=== PATIENT | male | born 1975 | race Caucasian/White ===

== ENCOUNTER 2017-02-12 17:23 | Emergency (ER) | payer OTHER ==
[2017-02-12 17:29] VITALS: BP 113/75; PULSE 72; RESP 16; TEMP 98.1; O2SAT 95
--- NOTE | 2017-02-12 18:37 | ED PDOC ---
Arrival/HPI - General Chief Complaint: Headache Time Seen by Provider: 02/12/17 17:33 Historian: Patient - History of Present Illness Narrative History of Present Illness (Text): 02/12/17 18:25 41yr old male presents today with a 1 week history of right sided jaw pain, right ear pain, and right sided headache. no medications have been taken for pain at home. pt states pain is worse when he opens his mouth wide. pt denies blurred vision. denies fever/chills. denies dental pain. pt denies decreased sensation in the face. denies decreased hearing. no other complaints. Time/Duration: 1 week Symptom Onset: Gradual Symptom Course: Worsening Quality: Aching Severity Level: 6 Past Medical History - Provider Review Nursing Documentation Reviewed: Yes - Travel History Have you recently traveled outside [place] w/in the past 3 mons?: No - Tetanus Immunization Tetanus Immunization: Unknown - Psychiatric Hx Psychophysiologic Disorder: No Hx Substance Use: No - Surgical History Hx Abdominal Aortic Aneurysm Repair: No Other/Comment: CYST REMOVED FROM R GROIN AT AGE 9 Family/Social History - Physician Review Nursing Documentation Reviewed: Yes Family/Social History: Unknown Family HX Smoking Status: Never Smoked Hx Alcohol Use: No Hx Substance Use: No Allergies/Home Meds Allergies/Adverse Reactions: Allergies No Known Allergies Allergy (Verified 02/12/17 17:29) Review of Systems - Review of Systems Constitutional: absent: Fatigue, Fevers Eyes: absent: Vision Changes, Photophobia, Eye Pain ENT: TMJ Pain, Sinus Congestion. absent: Hearing Changes, Sore Throat, Epistaxis Respiratory: absent: SOB, Cough Cardiovascular: absent: Chest Pain, Palpitations Gastrointestinal: absent: Abdominal Pain, Nausea, Vomiting Genitourinary Male: absent: Dysuria, Frequency Musculoskeletal: Arthralgias (right jaw pain). absent: Back Pain, Neck Pain Skin: absent: Rash, Pruritis Neurological: Headache. absent: Dizziness Psychiatric: absent: Anxiety, Depression Physical Exam Vital Signs Reviewed: Yes Vital Signs Temp Pulse Resp BP Pulse Ox 02/12/17 17:26 98.1 F 72 16 113/75 95 Temperature: Afebrile Blood Pressure: Normal Pulse: Regular Respiratory Rate: Normal Appearance: Positive for: Well-Appearing, Non-Toxic, Comfortable Pain Distress: None Mental Status: Positive for: Alert and Oriented X 3 - Systems Exam Head: Present: Atraumatic, Tenderness (+ right sided TMJ tenderness), Other (no facial asymmetry) Pupils: Present: PERRL Extroacular Muscles: Present: EOMI Conjunctiva: Present: Normal Ears: Present: Normal, NORMAL TM. No: Erythema Mouth: Present: Moist Mucous Membranes, Normal Lips, Normal Tounge, Normal Teeth (no dental tenderness. + ttp over right TJM; no edema, no erythema; no ecchymosis; ). No: Drooling, Trismus Pharnyx: Present: Normal. No: ERYTHEMA, EXUDATE, TONSILS ENLARGED, Peritonsilar Swelling, Uvular Deviation, Muffled/Hoarse Voice, Strider, Soft Palate/Uvular Edema Nose (External): Present: Atraumatic Nose (Internal): Present: Normal Inspection Neck: Present: Normal Range of Motion, Trachea Midline. No: MIDLINE TENDERNESS , Paraspinal Tenderness, Lymphadenopathy Respiratory/Chest: Present: Clear to Auscultation, Good Air Exchange. No: Respiratory Distress, Accessory Muscle Use Cardiovascular: Present: Regular Rate and Rhythm, Normal S1, S2. No: Murmurs Neurological: Present: GCS=15, Speech Normal, Motor Func Grossly Intact, Normal Sensory Function, Gait Normal Skin: Present: Warm, Dry Psychiatric: Present: Alert, Oriented x 3 Medical Decision Making ED Course and Treatment: 02/12/17 18:55 41yr old male with right sided jaw pain x 1 week. pt non toxic well appearing; no distress. pt with right sided TMJ tenderness. pt without trismus or drooling. no facial asymmetry, no facial droop. Speaking in full sentences in no distress. sensation intact bilaterally on the face. toradol and flexeril given Po pt reassessment; pt feeling better after medications. vitals stable. advised f/u with dentist and pmd within the next 2 days. advised immediate return if symptoms worsen,persist or if new symptoms develop. impression: jaw pain, tmj motrin every 6 hours as needed for pain Flexeril; 1 tablet every 8 hours as needed for muscle spasms; may cause drowsiness. follow up with the primary care physician within the next 2 days follow up with the dentist within the next 2 days. return immediately if symptoms worsen, persist or if new symptoms develop: high fevers, dizziness, weakness, facial weakness/numbness or if any other concerning symptoms develop. - Medication Orders Current Medication Orders: Discontinued Medications Cyclobenzaprine HCl (Flexeril) 10 mg PO STAT STA Stop: 02/12/17 18:25 Last Admin: 02/12/17 18:45 Dose: 10 mg Ketorolac Tromethamine (Toradol) 60 mg IM STAT STA Stop: 02/12/17 18:25 Last Admin: 02/12/17 18:45 Dose: 60 mg MAR Pain Assessment Document 02/12/17 18:45 SE (Rec: 02/12/17 18:45 [id number] Pain Reassessment Is this a pain reassessment? No Sleep Is patient sleeping during reassessment? No Presence of Pain Presence of Pain Yes Pain Scale Used Pain Scale Used Numeric IM Administration Charges Document 02/12/17 18:45 SE (Rec: 02/12/17 18:45 [id number] Injection Site MAR Injection Site Left Vastus Lateralis Charges for Administration # of IM Administrations 1 Disposition/Present on Arrival - Present on Arrival Any Indicators Present on Arrival: No History of DVT/PE: No History of Uncontrolled Diabetes: No Urinary Catheter: No History of Decub. Ulcer: No History Surgical Site Infection Following: None - Disposition Have Diagnosis and Disposition been Completed?: Yes Diagnosis: Jaw pain Disposition: HOME/ ROUTINE Disposition Time: 19:07 Patient Plan: Discharge Condition: GOOD Additional Instructions: motrin every 6 hours as needed for pain Flexeril; 1 tablet every 8 hours as needed for muscle spasms; may cause drowsiness. follow up with the primary care physician within the next 2 days follow up with the dentist within the next 2 days. return immediately if symptoms worsen, persist or if new symptoms develop: high fevers, dizziness, weakness, facial weakness/numbness or if any other concerning symptoms develop. Prescriptions: Cyclobenzaprine [Cyclobenzaprine HCl] 10 mg PO Q8 #10 tab Ibuprofen [Motrin] 600 mg PO Q6H PRN #20 tab PRN Reason: pain/fever reduction Referrals: Samy Loving DMD [Non-Staff] - Follow up with primary Christina Sarmiento MD [Staff Provider] - Follow up with primary Forms: [employer] (Turkmen), WORK NOTE
== END 2017-02-12 19:41 | disposition home or self-care (01) ==
LOC: ED 17:23
DX: R68.84 Jaw pain (principal)
CPT/HCPCS: 96372; 99285; J1885